=== PATIENT | female | born 1985 | race Caucasian/White ===

== ENCOUNTER → 2018-06-17 | Outpatient (CLI) | payer BC, MEDICAID ==
[2018-06-17 13:31] LABS: BASO # 0.1 10^3/uL (0.0-0.2); BASO % 0.4 % (0.0-1.0); EOS # 0.3 10^3/uL (0.0-0.50); EOS % 2.3 % (0.0-3.0); HEMATOCRIT 41.6 % (36.0-47.0); HEMOGLOBIN 13.7 g/dl (12.0-15.5); LYMPH # 2.3 10^3/uL (1.5-4.5); LYMPH % 19.9 % (24.0-44.0); MEAN CORPUSCULAR HEMOGLOBIN 29.1 pg (27.0-33.0); MEAN CORPUSCULAR HGB CONC 32.9 g/dl (32.0-36.5); MEAN CORPUSCULAR VOLUME 88.5 fl (80.0-96.0); MONO # 0.5 10^3/uL (0.0-0.8); MONO % 4.1 % (0.0-5.0); NEUTROPHILS # 8.4 10^3/uL (1.8-7.7); NEUTROPHILS % 72.3 % (36.0-66.0); PLATELET COUNT, AUTOMATED 265 10^3/uL (150-450); RED CELL DISTRIBUTION WIDTH 13.5 % (11.5-14.5); WHITE BLOOD COUNT 11.6 10^3/uL (4.0-10.0)
[2018-06-17 14:18] LABS: HEPATITIS C VIRUS ABY INDEX 0.1 INDEX (<0.8)
[2018-06-17 14:18] LABS: HBsAg Prenatal NEGATIVE (NEGATIVE); HIV 1&2 SCREEN CENTAUR NEGATIVE (NEGATIVE); RUBELLA IgG QUALITATIVE IMMUNE (IMMUNE)
[2018-06-17 14:38] LABS: CHLAMYDIA DNA AMPLIFICATION NEGATIVE (NEGATIVE); GC DNA AMPLIFICATION NEGATIVE (NEGATIVE)
== END ==
LOC: M SMT 10:21
DX: Z36.89 Encounter for other specified antenatal screening (principal)
CPT/HCPCS: 86762

== ENCOUNTER → 2018-07-22 | Outpatient (CLI) | payer BC, MEDICAID | LOC: M SMT 11:24 | PROVIDERS: ATTEND Advanced Practice Midwife | DX: Z36.89 Encounter for other specified antenatal screening (principal); Z13.79 Encounter for other screening for genetic and chromosomal anomalies ==

== ENCOUNTER → 2019-01-07 | Outpatient (REF) | payer BC, MEDICAID | LOC: M LAB REF 12:52 | PROVIDERS: ATTEND Specialist | DX: Z3A.36 36 weeks gestation of pregnancy (principal) ==

== ENCOUNTER → 2019-01-15 | Outpatient (CLI) | payer BC, MEDICAID | LOC: M SMT 13:48 | PROVIDERS: ATTEND Advanced Practice Midwife | DX: Z34.83 Encounter for supervision of other normal pregnancy, third trimester (principal) ==

== ENCOUNTER → 2019-01-24 | Outpatient (REF) | payer BC, MEDICAID | LOC: M LAB REF 17:02 | PROVIDERS: ATTEND Advanced Practice Midwife | DX: O99.283 Endocrine, nutritional and metabolic diseases complicating pregnancy, third trimester (principal) ==

== ENCOUNTER → 2019-01-29 | Outpatient (REF) | payer BC, MEDICAID ==
[~2019-01-29] MED LIST: ACET-683 PO; IBUP80TA PO; LEVO-89 PO; PRENTAB9 PO
== END ==
LOC: M LAB REF 17:08
PROVIDERS: ATTEND Advanced Practice Midwife
DX: Z34.83 Encounter for supervision of other normal pregnancy, third trimester (principal)

== ENCOUNTER 2019-02-05 05:35 | Inpatient (IN) | payer BC, MEDICAID ==
[~2019-02-05] VITALS: Ht 162.6 cm; Wt 87.4 kg
[2019-02-05 06:04] VITALS: BP 147/98
[2019-02-05] MEDS ORDERED: PRENTAB9 PO (06:13)
[2019-02-05] MEDS ORDERED: LEVO-89 PO (06:13)
[2019-02-05] MEDS ORDERED: LR 1,000 ML IV SCH (07:37)
[2019-02-05] MEDS ORDERED: LACTATED RINGER'S 1000 ML IV STA (07:37)
[2019-02-05] MEDS ORDERED: FENTANYL 2MCG/ML ROPIVACAINE 0.2% IN 0.9% NACL 100ML IVBAG As Ordered ONE (07:51)
[2019-02-05 08:02] LABS: ALT/SGPT 14 U/L (12-78); BILIRUBIN,TOTAL 0.2 MG/DL (0.2-1.0); CREATININE FOR GFR 0.71 MG/DL (0.55-1.30); GLOMERULAR FILTRATION RATE > 60.0 (>60); LDH LACTATE DEHYDROGENASE 173 U/L (84-246)
[2019-02-05] MEDS ORDERED: PENICILLIN G POTASSIUM IV 5 MU in D5W MINI-BAG PLUS 100 ML IV STA ×2 (08:02→08:16)
[2019-02-05 08:24] LABS: HEMATOCRIT 35.8 % (36.0-47.0); HEMOGLOBIN 12.1 g/dl (12.0-15.5); MEAN CORPUSCULAR HEMOGLOBIN 30.6 pg (27.0-33.0); MEAN CORPUSCULAR HGB CONC 33.8 g/dl (32.0-36.5); MEAN CORPUSCULAR VOLUME 90.4 fl (80.0-96.0); PLATELET COUNT, AUTOMATED 149 10^3/uL (150-450); RED BLOOD COUNT 3.96 10^6/uL (4.00-5.40); WHITE BLOOD COUNT 18.3 10^3/uL (4.0-10.0)
[2019-02-05] MEDS: LEVOTHYROXINE 100MCG TABLET (0.1MG) PO SCH (08:24)
[2019-02-05] MEDS ORDERED: PILL CUTTER 1 EACH XX PRN (08:30)
[2019-02-05] MEDS ORDERED: PENICILLIN G POTASSIUM IV 2.5 MU in APPROPRIATE DILUENT 1 EA IV SCH ×3 (08:30→12:30)
--- NOTE | 2019-02-05 08:40 | HPE ---
DATE OF ADMISSION: 02/05/2019 REASON FOR ADMISSION: Labor. HISTORY OF PRESENT ILLNESS: This patient is a 33-year-old 2, para 0 who presents at 36 weeks 1 day estimated gestational age by a 6-week ultrasound with complaints of contractions. She reports contractions that started earlier this morning that increased in intensity and frequency. She reports active movement. Denies any vaginal bleeding or leakage of fluid. Her course has been unremarkable. She initiated care in the first trimester and has been appropriate throughout. PAST MEDICAL HISTORY: 1. Hyperthyroidism. 2. History of methicillin resistant Staphylococcus aureus (MRSA). 3. PCOS. 4. Anxiety. PAST SURGICAL HISTORY: None. OBSTETRICAL HISTORY: She is 2, para 0. She has had one first trimester miscarriage. PAST SURGICAL HISTORY: Tonsillectomy. MEDICATIONS: - levothyroxine - vitamins - Zantac ALLERGIES: She has no known drug allergies. SOCIAL HISTORY: She denies alcohol, tobacco or drug use during . PHYSICAL EXAMINATION: Vital signs: Blood pressure slightly elevated 140s over 90s. She is afebrile. She has category one rate tracing with contractions on tocometer. GENERAL APPEARANCE: Well appearing. No acute distress Lungs: Clear to auscultation bilaterally. Cardiovascular: Heart regular rate and rhythm. Abdomen is gravid, nontender. Estimated weight 3500 grams. Cervical exam: She was 5 cm dilated, 75% effaced, -2 station. LABORATORIES: Her laboratories: Blood type is O+, antibody screen is negative. Rubella is immune. RPR is nonreactive. Hepatitis surface antigen is negative. HIV is negative. Hepatitis C is nonreactive. Chlamydia, gonorrhea screens negative. She had a normal 1 hour Glucola. She is Group B streptococcus (GBS) positive. ASSESSMENT: 1. 33-year-old 2, para 0 at 39 weeks 6 days estimated gestational age in active labor. 2. Reassuring status. 3. GBS positive. PLAN: 1. Admit to labor and delivery. CBC, RPR, type and screen. 2. Penicillin for GBS positive. 3. Patient is a good candidate for epidural. 4. Anticipate spontaneous vaginal delivery.
[2019-02-05] MEDS: PRENATAL VITAMINS CHEWABLE TABLET PO SCH (09:00)
[2019-02-05] MEDS: FAMOTIDINE 20 MG TAB PO SCH ×2 (09:13→21:43)
[2019-02-05] MEDS ORDERED: ePHEDrine SULFATE 25 MG/5 ML(5MG/ML) SYRINGE IV PRN (10:00)
[2019-02-05] MEDS ORDERED: EPIDURAL/PCA KEYS XX PRN (10:00)
[2019-02-05] MEDS ORDERED: diphenhydrAMINE INJ 50MG/ML VIAL (J1200) IV PRN (10:00)
[2019-02-05] MEDS ORDERED: LACTATED RINGER'S 1000 ML IV PRN (10:00)
[2019-02-05] MEDS ORDERED: FENTANYL/ROPIVACAINE/NACL BAG 100 ML EPIDURAL SCH (10:00)
[2019-02-05] MEDS ORDERED: REFRIGERATOR IV KEYS XX PRN (10:00)
[2019-02-05] MEDS ORDERED: NALOXONE INJ 0.4 MG/1 ML VIAL (J2310) IV PRN (10:00)
[2019-02-05] MEDS ORDERED: EPIDURAL COMMENT XX SCH (10:00)
[2019-02-05] MEDS ORDERED: ONDANSETRON 4MG/2ML VIAL (J2405) IV PRN (10:00)
[2019-02-05 10:13] LABS: CREATININE,RANDOM URINE 47.4 MG/DL; TOTAL PROTEIN,RANDOM URINE 12.2 MG/DL (0.0-12.0)
[2019-02-05] MEDS ORDERED: OXYTOCIN 30 UNITS IN 0.9% NaCl 500ML IV BAG (J2590) As Ordered ONE (10:28)
[2019-02-05] MEDS ORDERED: OXYTOCIN DRIP 30 UNITS in APPROPRIATE DILUENT 1 EA IV SCH (11:46)
--- NOTE | 2019-02-05 11:58 | DN ---
DATE OF DELIVERY: 02/05/2019 Annabelle is a 33-year-old, 2, para 1-0-1-1 now, who was admitted to labor and delivery in active labor. She did utilize an epidural for her labor coping and progressed under her own singleton. She had spontaneous rupture of membranes for a small amount of clear odorless fluid at 0922 hours. She reached complete dilation at 1026 hours. She pushed to a normal spontaneous vaginal delivery of a live female in occiput anterior (OA) position with restitution to left occiput transverse (LOT) position with a left compound hand at 1115 hours. The shoulders delivered spontaneously and the corpus immediately followed. The female was placed on maternal abdomen crying and active. Her mouth and nares were bulb suctioned. The cord was clamped times two once pulsation ceased and cut by the father of the baby under my direction. A spontaneous expulsion of an intact placenta with three-vessel cord by Schultze mechanism was at 1122 hours. There were trailing membranes teased out with ring forceps. Uterine hemostasis achieved with intravenous (IV) Pitocin rapid infusion and uterine fundal massage. Estimated blood loss 300 mL. Perineum and vagina inspected and noted to have a first-degree midline laceration as well as a right labial laceration. The lacerations were repaired with #3-0 Rapide in the usual fashion. Harrah female weight are pending. score are 9 and 9. Mom is going to breastfeed and the family have named their daughter Shayla. At the close of delivery, lap counts, needle counts and instrument counts were correct and verified.
[2019-02-05] MEDS ORDERED: RHOGAM 300 MCG (1500 IU) INJ (J2790) IM SCH (12:00)
[2019-02-05] MEDS ORDERED: DOCUSATE SODIUM 100 MG CAP PO PRN (12:00)
[2019-02-05] MEDS ORDERED: IBUPROFEN 800 MG TAB PO PRN (12:00)
[2019-02-05] MEDS ORDERED: ACETAMINOPHEN TAB 650MG DOSE (2X325MG) PO PRN (12:00)
[2019-02-05] MEDS ORDERED: DIBUCAINE 1% OINTMENT 30GM TOP PRN (12:00)
[2019-02-05] MEDS ORDERED: ACETAMINOPHEN 500 MG TAB PO PRN (12:00)
[2019-02-05] MEDS ORDERED: MEASLES,MUMPS,RUBELLA VACCINE INJ (MMR-II) (90707) SC SCH (12:00)
[2019-02-05 14:45] VITALS: BP 120/62
[2019-02-05 18:00] VITALS: BP 121/63
[2019-02-06] MEDS: LEVOTHYROXINE 100MCG TABLET (0.1MG) PO SCH (05:02)
[2019-02-06 06:00] VITALS: BP 90/52
[2019-02-06] MEDS: PRENATAL VITAMINS CHEWABLE TABLET PO SCH (09:34)
[2019-02-06] MEDS: FAMOTIDINE 20 MG TAB PO SCH ×2 (09:34→20:05)
[2019-02-06 17:44] VITALS: BP 117/58
[2019-02-06] MEDS: IBUPROFEN 600 MG TAB PO PRN (20:05)
[2019-02-07] MEDS: IBUPROFEN 600 MG TAB PO PRN (01:56)
[2019-02-07 06:00] VITALS: BP 102/57
[2019-02-07] MEDS: LEVOTHYROXINE 100MCG TABLET (0.1MG) PO SCH (06:32)
[2019-02-07] MEDS ORDERED: IBUP80TA PO (07:01)
[2019-02-07] MEDS ORDERED: ACET-683 PO (07:01)
[2019-02-07] MEDS: PRENATAL VITAMINS CHEWABLE TABLET PO SCH (07:42)
[2019-02-07] MEDS: FAMOTIDINE 20 MG TAB PO SCH (07:42)
== END 2019-02-07 15:30 | disposition home or self-care (01) | DRG 560 ==
LOC: M LDO 05:35 → M LDI 07:03 → M OBS 14:29
PROVIDERS: ADMIT Obstetrics & Gynecology; ATTEND Advanced Practice Midwife
PROC: 10E0XZZ Delivery of Products of Conception, External Approach (ICD-10-PCS; principal; 2019-02-05)
PROC: 0HQ9XZZ Repair Perineum Skin, External Approach (ICD-10-PCS; 2019-02-05)
DX: O99.284 Endocrine, nutritional and metabolic diseases complicating childbirth (principal); E03.9 Hypothyroidism, unspecified; Z37.0 Single live birth; Z3A.36 36 weeks gestation of pregnancy; E28.2 Polycystic ovarian syndrome; O99.824 Streptococcus B carrier state complicating childbirth; O70.0 First degree perineal laceration during delivery

== ENCOUNTER → 2023-02-23 | Outpatient (CLI) | payer MEDICAID, OTHER ==
[2023-02-23 17:31] LABS: HEMATOCRIT 40.4 % (36.0-47.0); HEMOGLOBIN 13.3 g/dl (12.0-15.5); MEAN CORPUSCULAR HEMOGLOBIN 29.5 pg (27.0-33.0); MEAN CORPUSCULAR HGB CONC 32.9 g/dl (32.0-36.5); MEAN CORPUSCULAR VOLUME 89.6 fl (80.0-96.0); PLATELET COUNT, AUTOMATED 208 10^3/uL (150-450); RED BLOOD COUNT 4.51 10^6/uL (4.00-5.40)
[2023-02-23 18:05] LABS: THYROID STIMULATING HORMONE 3.624 uIU/ML (0.55-4.78)
[2023-02-23 18:08] LABS: FREE T4 1.16 NG/DL (0.89-1.76)
[2023-02-23 18:29] LABS: HIV 1&2 SCREEN NEGATIVE (NEGATIVE)
[2023-02-23 18:36] LABS: HEPATITIS C VIRUS ABY INDEX 0.11 INDEX (<0.8)
[2023-02-23 19:43] LABS: GC DNA AMPLIFICATION NEGATIVE (NEGATIVE)
== END ==
LOC: M PLALAB 15:36
PROVIDERS: ATTEND Specialist
DX: Z34.81 Encounter for supervision of other normal pregnancy, first trimester (principal)

== ENCOUNTER → 2023-04-16 | Outpatient (CLI) | payer OTHER | LOC: M WHC 13:51 | PROVIDERS: ATTEND Obstetrics & Gynecology | DX: Z34.92 Encounter for supervision of normal pregnancy, unspecified, second trimester (principal); Z3A.19 19 weeks gestation of pregnancy ==

== ENCOUNTER → 2023-04-16 | Outpatient (CLI) | payer OTHER ==
[2023-04-16 17:59] LABS: FREE T4 1.08 NG/DL (0.89-1.76); THYROID STIMULATING HORMONE 1.93 uIU/ML (0.55-4.78)
== END ==
LOC: M PLALAB 14:03
PROVIDERS: ATTEND Obstetrics & Gynecology
DX: E03.9 Hypothyroidism, unspecified (principal)

== ENCOUNTER → 2023-07-27 | Outpatient (REF) | payer OTHER, MEDICAID | LOC: M SFHCWAGY 15:04 | PROVIDERS: ATTEND Advanced Practice Midwife | DX: N89.8 Other specified noninflammatory disorders of vagina (principal) ==